=== PATIENT | male | born 2000 | race Hispanic/Latino ===

== ENCOUNTER 2022-08-18 16:38 | Emergency (ER) | payer SELFPAY ==
[2022-08-18] MEDS ORDERED: Ibuprofen 200 MG TAB ONE ×2 (16:57→16:59)
[2022-08-18] MEDS ORDERED: Metoclopramide HCl 10 MG TAB ONE (17:35)
[2022-08-18] MEDS ORDERED: Acetaminophen 500 MG TAB ONE (18:58)
[2022-08-18] MEDS ORDERED: diphenhydrAMINE 25 MG CAP ONE (18:58)
== END 2022-08-18 19:28 | disposition home or self-care (01) ==
LOC: ERS 16:38
DX: B34.9 Viral infection, unspecified (principal); Z20.822 Contact with and (suspected) exposure to COVID-19
CPT/HCPCS: 87804; 99284; U0003; U0005